=== PATIENT | male | born 1975 | race African-American/Black ===

== ENCOUNTER 2017-08-22 14:51 | Emergency (ER) | payer OTHER ==
[2017-08-22] MEDS: HYDROCODONE/APAP (5/325) TAB PO (16:44)
[2017-08-22] MEDS ORDERED: LIDOCAINE 1% (MDV) 20 ML INJ SC (17:00)
[2017-08-22] MEDS: LIDOCAINE 1% (MPF) 30 ML INJ INJ (17:36)
== END 2017-08-22 17:58 | disposition home or self-care (01) ==
LOC: FTE 14:51
DX: L05.01 Pilonidal cyst with abscess (principal)
CPT/HCPCS: 10080; 99284-25

== ENCOUNTER 2017-11-22 07:19 | Emergency (ER) | payer OTHER ==
[2017-11-22] MEDS: LIDOCAINE 1% (MDV) 10 ML INJ INJ (07:47)
[2017-11-22] MEDS: LIDOCAINE 1% (MDV) 20 ML INJ INJ (07:47)
== END 2017-11-22 08:10 | disposition home or self-care (01) ==
LOC: FTE 07:19
DX: K08.89 Other specified disorders of teeth and supporting structures (principal)
CPT/HCPCS: 99283; Z7610

== ENCOUNTER 2017-12-29 10:06 | Emergency (ER) | payer OTHER ==
[2017-12-29] MEDS: IBUPROFEN 600 MG TAB PO (12:03)
[2017-12-29] MEDS: HYDROCODONE/APAP (5/325) TAB PO (12:04)
== END 2017-12-29 12:41 | disposition home or self-care (01) ==
LOC: FTE 10:06
DX: K08.89 Other specified disorders of teeth and supporting structures (principal)
CPT/HCPCS: 99283; Z7502

== ENCOUNTER 2018-01-01 06:31 | Emergency (ER) | payer OTHER ==
[2018-01-01] MEDS: KETOROLAC 30 MG INJ IM (07:11)
== END 2018-01-01 08:55 | disposition home or self-care (01) ==
LOC: FTE 06:31
DX: K08.9 Disorder of teeth and supporting structures, unspecified (principal)
CPT/HCPCS: 96372; 99284-25